=== PATIENT | male | born 1970 | race Caucasian/White ===

== ENCOUNTER 2019-11-14 07:44 | Emergency (ER) | payer OTHER, SELFPAY ==
--- NOTE | ~2019-11-14 | XR_ITS ---
XR abdomen/kub 1V DATE: 11/14/2019 08:22 INDICATION: Left flank pain. History of nephrolithiasis. TECHNIQUE: AP projection, 2 views COMPARISON: 11/14/2019 CT abdomen pelvis FINDINGS: There is a 3 mm calcified calculus overlying the left ureter at the S2 level. Multiple bilateral calcified renal stones are noted. Nonspecific bowel gas pattern without evidence of obstruction. No visceromegaly is evident. IMPRESSION: 3 mm distal left ureteral calcified calculus Bilateral nephrolithiasis Reviewed, dictated and finalized at Location [facility]. Reviewed, dictated and finalized at location A.
--- NOTE | ~2019-11-14 | CT_ITS ---
EXAMINATION: CT abdomen pelvis wo con DATE: 11/14/2019 08:17 INDICATION: Nephrolithiasis. Left-sided flank pain. TECHNIQUE: Computed tomography (CT) of the abdomen and pelvis was performed without intravenous contr ast. Automated exposure control and iterative reconstruction technique were employed. The dose-length product was 240.42 mGy-cm. COMPARISON: 04/10/2018 FINDINGS: Lung bases are clear. Heart size is normal. No pericardial or pleural effusion. Liver, gallbladder, s pleen, pancreas and bilateral adrenal glands are normal. Bilateral nephrolithiasis with 3-4 mm stone in the distal left ureter. There is very mild left hydroureteronephrosis. There are at least 5 stones in the right kidney and 10 stones in the left kidney, the largest in each kidney measuring up to 4 m m. No right-sided ureteral stones or hydronephrosis. Bladder is normal. Bowels including the appendix are normal. No free intraperitoneal gas or fluid. No pathologically enlarged abdominal or pelvic lym phadenopathy. Mild thoracolumbar spondylosis. IMPRESSION: 1. Bilateral nephrolithiasis with likely partial obstructing 3-4 mm distal left ureteral stone with v anna mild left hydroureteronephrosis. Reviewed, dictated and finalized at location A. IMPRESSION: 1. Bilateral nephrolithiasis with likely partial obstructing 3-4 mm distal left ureteral stone with very mild left hydroureteronephrosis.
--- NOTE | 2019-11-14 07:46 | ED.GENADULT ---
HPI - General Adult General Chief complaint: Urogenital-Male Stated complaint: flank pain Time Seen by Provider: 11/14/19 07:46 Source: patient Mode of arrival: ambulatory Limitations: no limitations History of Present Illness HPI narrative: Pt is a 49 yo male with a history of nephrolthiasis who presents to the ED for evaluation of flank pain. Pt with last passed kidney stone at home a couple of weeks ago. Patient was last seen in this facility in 2018 for renal colic, at that time and found to have passed a stone into his bladder and was discharged home. Patient states that he has been dealing with severe left flank pain since 3 AM this morning. Described as sharp, stabbing in nature with radiation into the left lower abdomen. Patient denies any chest pain, he reports nausea without vomiting. He denies fever. He reports difficulty with urination this morning as well as hematuria yesterday. Patient has followed with Dr. Gaffney' in the past, has required lithotripsy as well as ureteral stents. Related Data Home Medications Medication Instructions Recorded Confirmed amlodipine 11/14/19 irbesartan mg 11/14/19 tizanidine mg 11/14/19 Allergies Allergy/AdvReac Type Severity Reaction Status Date / Time ketorolac Allergy Unknown Other Verified 11/14/19 07:52 levofloxacin Allergy Unknown Other Verified 11/14/19 07:52 NSAIDS (Non-Steroidal Allergy Unknown Other Verified 11/14/19 07:52 Anti-Inflamma Review of Systems Review of Systems: Narrative: CONSTITUTIONAL: Denies fever, chills, or sweats. CARDIOVASCULAR: Denies chest pain RESPIRATORY: Denies dyspnea. GASTROINTESTINAL: Reports left flank pain, nausea, denies vomiting GENITOURINARY: Reports hematuria, difficulty with urination SKIN: Denies rash or itching. MUSCULOSKELETAL: Reports left flank pain, no central lumbar pain NEUROLOGIC: Denies headache PMFSH Past Medical History Medical History (Updated 11/14/19 @ 09:39 by Tameka Barragan MD) Duodenal perforation Hypertension Nephrolithiasis Family History Family History (Updated 02/20/16 @ 23:19 by DOCTOR UNKNOWN) Mother Hypertension Family history of diabetes mellitus in first degree relative Father Family history of bronchitis Social History Social History Smoking status: Never smoker Alcohol intake: current Gender identity (if verbalized by the patient): Male Exam Narrative: Exam Narrative: GENERAL: Awake, alert, uncomfortable appearing HEAD: Normocephalic, atraumatic. EYES: PERRLA and EOMI. ENT: Nares clear, no rhinorrhea or epistaxis. Mucous membranes moist. NECK: Supple. CHEST: No respiratory distress, breathing even and non labored HEART: Regular rate, sinus rhythm ABDOMEN:Non distended,+ left flank tenderness, does not exactly reproduce pain EXTREMITIES: Normal range of motion. No edema. SKIN: Warm, dry, no rash. NEURO:No focal deficits. Alert and oriented x3 Course Vital Signs Vital signs: Vital Signs Temperature 36.3 C L 11/14/19 07:48 Pulse Rate 96 11/14/19 07:48 Respiratory Rate 19 11/14/19 07:48 Blood Pressure 145/110 H 11/14/19 07:48 Pulse Oximetry 100 11/14/19 07:48 Temperature 36.3 C L 11/14/19 07:48 Pulse Rate 61 11/14/19 09:51 Respiratory Rate 17 11/14/19 09:51 Blood Pressure 138/96 H 11/14/19 09:51 Pulse Oximetry 100 11/14/19 09:51 Medical Decision Making MDM Narrative Medical decision making narrative: Patient presented to the emergency department for evaluation of left flank pain in the setting of known nephrolithiasis. At the time of initial assessment, ABCs are intact and vital signs are stable. Patient is quite uncomfortable appearing. He was given IV fluids, antiemetic, pain medication and had much improvement in his pain. CT scan and KUB confirm multiple kidney stones in bilateral kidneys, stone causing his issue today is a left ureteral stone. It is approximately 3 to 4 mm. Patient has a history of pass
[2019-11-14 07:48] VITALS: BP 145/110; PULSE 96; RESP 19; TEMP 36.3; O2SAT 100
[2019-11-14 08:02] LABS: Basophils Absolute Auto 0.1 K/mm3 (0.0-0.1); Basophils Percent Auto 0.5 % (0.2-1.2); Eosinophils Absolute Auto 0.2 K/mm3 (0-0.3); Eosinophils Percent Auto 1.8 % (0-4.4); Hematocrit 49.5 % (42.0-52.0); Hemoglobin 17.2 g/dL (14.0-18.0); Immature Granulocyte Absolute 0.05 K/mm3 (0.00-0.031); Immature Granulocyte Percent A 0.5 % (0-0.5); Lymphocytes Absolute Auto 3.57 K/mm3 (0.9-3.2); Lymphocytes Percent Auto 32.7 % (18.3-44.2); Mean Corpuscular HGB Conc 34.7 g/dl (32-36); Mean Corpuscular Volume 89.2 fl (80-100); Mean Platelet Volume 10.1 fl (7.4-10.4); Monocytes Percent Auto 8.9 % (2.6-8.5); Neutrophils Absolute Auto 6.1 K/mm3 (1.3-6.7); Neutrophils Percent Auto 55.6 % (45.5-73.1); Platelet Count Result 405 k/mm3 (150-375); Red Blood Count 5.55 M/mm3 (4.6-6.20); Red Cell Distribution Width 12.3 % (11.5-14.5); White Blood Count 10.9 K/mm3 (4.5-10.0)
[2019-11-14] MEDS: ONDANSETRON INJ 4 MG/2 ML VIAL IV PUSH (08:04)
[2019-11-14] MEDS: SODIUM CHLORIDE 0.9% IV 1,000 ML 999 ML IV CONT (08:06)
[2019-11-14] MEDS: MORPHINE SULFATE 4 MG/ML INJ 8 MG IV PUSH (08:06)
[2019-11-14 08:15] LABS: Blood Urea Nitrogen 14 mg/dL (9-20); Carbon Dioxide 24 mmol/L (22-30); Chloride 106 mmol/L (98-107); Estimated Glomerular Filt Rate > 60; Glucose 109 mg/dL (75-110); Potassium 4.4 mmol/L (3.4-5.0); Sodium 140 mmol/L (137-145)
[2019-11-14 09:09] LABS: Add Urine Microscopic? YES; Appearance Urine Clear (Clear); Bilirubin Urine Negative (Negative); Blood Urine 1+ (Negative); Color Urine Yellow (Yellow); Glucose Urine UA Negative (Negative); Ketones Urine Negative (Negative); Leukocyte Esterase Ur Negative LEU/UL (Negative); Mucus Urine Rare /lpf; Nitrate Urine Negative (Negative); Protein Urine 1+ mg/dL (Negative); Specific Grav Ur 1.034 (1.001-1.035); Squamous Epithelial Cell Urine Rare /hpf (Few); Urobilinogen Urine Negative mg/dL (<2.0); WBC Urine 0-3 /hpf
[2019-11-14 09:51] VITALS: BP 138/96; PULSE 61; RESP 17; O2SAT 100
== END 2019-11-14 09:53 | disposition home or self-care (01) ==
PROVIDERS: Emergency Provider Emergency Medicine
DX: N13.2 Hydronephrosis with renal and ureteral calculous obstruction (principal); I10 Essential (primary) hypertension
CPT/HCPCS: 36415; 74018; 74176; 80048; 81001; 85025; 96361; 96365; 96375; 99284; J0131; J2270; J2405; J7030

== ENCOUNTER 2019-11-14 15:31 | Observation (INO) | payer OTHER, SELFPAY ==
--- NOTE | ~2019-11-14 | XR_ITS ---
EXAMINATION: XR abdomen obstructive series DATE: 11/15/2019 05:43 INDICATION: Left renal colic TECHNIQUE: Frontal supine and upright views of the abdomen were obtained. COMPARISON: 11/14/2019 FINDINGS: Unchanged pattern of bilateral nephrolithiasis with 5 stones in the right kidney and 6 stones in the left kidney. No stones seen along the course of the ureters. No dilated gas-filled loops of bowel. Isiah nataliia are unremarkable. IMPRESSION: 1. Bilateral nephrolithiasis. Stone previously seen in the left ureter is no longer appreciated and may have passed. Reviewed, dictated and finalized at location A. IMPRESSION: 1. Bilateral nephrolithiasis. Stone previously seen in the left ureter is no l onger appreciated and may have passed.
--- NOTE | ~2019-11-14 | XR_ITS ---
EXAMINATION: XR abdomen/kub 1V EXAM DATE: 11/14/2019 16:56 INDICATION: Left nephrolithiasis. Renal colic. TECHNIQUE: Frontal projection(s) of the abdomen for interpretation. Comparison is made to prior exami nation from earlier same date. FINDINGS: The 2 most likely candidates for the left distal ureteral stones have been indicated. Ther e is bilateral nephrolithiasis. Nonobstructive bowel gas pattern. IMPRESSION: Distal left ureteral stone. Bilateral nephrolithiasis. Reviewed, dictated and finalized at location A.
[2019-11-14 15:33] VITALS: BP 166/115; PULSE 102; RESP 24; TEMP 36.4; O2SAT 99
--- NOTE | 2019-11-14 16:48 | ED.ABDPAIN ---
HPI - Abdominal Pain General Chief Complaint: Urogenital-Male Stated Complaint: left flank pain Time Seen by Provider: 11/14/19 16:12 Source: patient and family Mode of arrival: ambulatory Limitations: no limitations History of Present Illness HPI narrative: Pt is a 49-year-old male with a history of bilateral nephrolithiasis, most recently diagnosed with a partially obstructing left ureteral stone who presents for evaluation of worsening flank pain and vomiting. Patient reports since discharge from the hospital his pain returns, he has not passed the kidney stone, and his pain is not been controlled with oral medication. Patient has been nauseous and has vomited. He reports worsening left-sided abdominal pain that feels exactly like his typical kidney stone pain. Pain is severe in nature, no radiation to the back at this point. No fever. No urinary retention. Related Data Home Medications Medication Instructions Recorded Confirmed amlodipine 11/14/19 irbesartan mg 11/14/19 tizanidine mg 11/14/19 Allergies Allergy/AdvReac Type Severity Reaction Status Date / Time ketorolac Allergy Unknown Other Verified 11/14/19 07:52 levofloxacin Allergy Unknown Other Verified 11/14/19 07:52 NSAIDS (Non-Steroidal Allergy Unknown Other Verified 11/14/19 07:52 Anti-Inflamma Review of Systems Review of Systems: Narrative: CONSTITUTIONAL: Denies fever, chills, or sweats. CARDIOVASCULAR: Denies chest pain, palpitations, or edema. RESPIRATORY: Denies cough or dyspnea. GASTROINTESTINAL: Reports abdominal pain, left-sided abdominal pain, nausea and vomiting GENITOURINARY: Denies dysuria, reports hematuria SKIN: Denies rash or itching. MUSCULOSKELETAL: Denies back pain, joint pain, or myalgia. NEUROLOGIC: Denies headache, numbness, or weakness. [facility] Past Medical History Medical History Duodenal perforation Hypertension Nephrolithiasis Family History Family History Mother Hypertension Family history of diabetes mellitus in first degree relative Father Family history of bronchitis Social History Social History Smoking status: Never smoker Alcohol intake: current Gender identity (if verbalized by the patient): Male Exam Narrative: Exam Narrative: GENERAL: Awake, alert, conversant, uncomfortable appearing HEAD: Normocephalic, atraumatic. EYES: PERRLA and EOMI. ENT: Nares clear, no rhinorrhea or epistaxis. Mucous membranes moist. NECK: Supple. CHEST: No respiratory distress, breathing even and non labored HEART: Tachycardic rate, sinus rhythm ABDOMEN:Non distended, left abdominal tenderness, guarding EXTREMITIES: Normal range of motion. No edema. SKIN: Warm, dry, no rash. NEURO:No focal deficits. Alert and oriented x3 Course Vital Signs Vital signs: Vital Signs Temperature 36.4 C L 11/14/19 15:33 Pulse Rate 102 H 11/14/19 15:33 Respiratory Rate 24 H 11/14/19 15:33 Blood Pressure 166/115 H 11/14/19 15:33 Pulse Oximetry 99 11/14/19 15:33 Temperature 36.4 C L 11/14/19 15:33 Pulse Rate 102 H 11/14/19 15:33 Respiratory Rate 24 H 11/14/19 15:33 Blood Pressure 166/115 H 11/14/19 15:33 Pulse Oximetry 99 11/14/19 15:33 MDM - Abdominal Pain MDM Narrative Medical decision making narrative: Patient presented for evaluation of recurrent left-sided flank pain due to his left ureteral stone. On KUB, left ureteral stone still present. Patient has a slight bump in his creatinine. Will resend UA and culture. No UTI this am. I spoke with on-call urologist Dr. Dailey we will admit him to their service, for likely operative management tomorrow morning. Patient will be placed on maintenance fluid, given IV antiemetic, pain medications, KUB to be performed for morning. Patient family updated, patient was admitted in stable cond
[2019-11-14 17:02] LABS: Blood Urea Nitrogen 14 mg/dL (9-20); Calcium 9.6 mg/dL (8.4-10.2); Carbon Dioxide 22 mmol/L (22-30); Chloride 108 mmol/L (98-107); Estimated CRCL calculation 52 ml/min; Estimated Glomerular Filt Rate 46; Glucose 130 mg/dL (75-110); Potassium 4.5 mmol/L (3.4-5.0); Sodium 140 mmol/L (137-145)
[2019-11-14] MEDS: ONDANSETRON INJ 4 MG/2 ML VIAL IV PUSH ×2 (17:11→22:16)
[2019-11-14] MEDS: SODIUM CHLORIDE 0.9% IV 1,000 ML 999 ML IV CONT (17:11)
[2019-11-14] MEDS: MORPHINE SULFATE 4 MG/ML INJ IV PUSH (17:11)
--- NOTE | 2019-11-14 18:25 | ADMGEN ---
This patient, Fran Kimble, was admitted to Medical Room 342-01. Patient/family oriented to hospital policies and general routines including ID bracelet, bed and alarms, visiting hours, pain management, procedures, bathroom and other care routines, personal items, smoking policy, room service/diet, and visiting hours. Valuables list has been completed. Information on how to activate the Rapid Response Team has been discussed. Patient/Family are encouraged to report perceived risks to care and to ask questions if they do not understand what they are told or what they should do.
[2019-11-14 18:30] VITALS: BP 139/104; PULSE 110; RESP 18; TEMP 37.2; O2SAT 95
[2019-11-14 19:39] VITALS: BMI 29.0
[2019-11-14] MEDS: SODIUM CHLORIDE 0.9% IV 1,000 ML 125 ML IV CONT (19:52)
[2019-11-14 20:00] VITALS: BP 137/96; PULSE 88; RESP 20; TEMP 37.2; O2SAT 99
[2019-11-15] MEDS: SODIUM CHLORIDE 0.9% IV 1,000 ML 125 ML IV CONT (03:47)
[2019-11-15 04:00] VITALS: BP 102/51; PULSE 73; RESP 18; TEMP 36.8; O2SAT 99
--- NOTE | 2019-11-15 10:36 | PM.IMHP ---
H&P: HPI History of Present Illness Chief complaint: Left Renal Colic Narrative: Fran Kimble is a 49 year old male who has spontaneously passed 8-10 stones in his life but, somewhat surprisingly, has never seen a urologist. He was admitted to the ER with recurrent left flank pain that actually prompted 2 visits to the emergency department within 24 hours. He was admitted for hydration and analgesics plans for endoscopic stone extraction. Overnight, however, he spontaneously passed the stone. In addition to this ureteral stone he has multiple similar sized bilateral renal calculi. He has never undergone metabolic evaluation in the past. Review of Systems Constitutional: Constitutional: Denies chills, Denies fatigue, Denies fever(s) and Denies headache(s) Eyes: Eyes: Denies blurry vision ENT: Denies vertigo, Denies dizziness, Denies headache(s) and Denies sore throat Cardiovascular: Cardiovascular: Denies chest pain, Denies syncope, Denies lightheadedness, Denies palpitations, Denies dyspnea and Denies dyspnea on exertion Respiratory: Respiratory: Denies hemoptysis, Denies dyspnea and Denies dyspnea on exertion Gastrointestinal: Gastrointestinal: Denies melena, Denies bloating, Denies hematochezia, Denies change in bowel habits, Denies change in stool character, Denies constipation, Denies diarrhea and Denies vomiting Genitourinary: Genitourinary: Denies hematuria, Denies dysuria, Denies testicular pain, Denies urinary frequency, Denies urinary hesitancy and Denies urinary urgency Integumentary/Breasts: Skin/Breast: Denies pruritus, Denies lesions and Denies rash Neurologic: Denies confusion, Denies vertigo, Denies dizziness, Denies syncope and Denies headache(s) Psychiatric: Psychiatric: Denies anxiety, Denies change in appetite and Denies confusion Endocrine: Endocrine: Denies fatigue and Denies palpitations PMFSH Past Medical History Medical History Duodenal perforation Hypertension Nephrolithiasis Family History Family History Mother Hypertension Family history of diabetes mellitus in first degree relative Father Family history of bronchitis Social History Social History Smoking status: Never smoker Smokeless tobacco user: chewing tobacco Second hand tobacco smoke exposure: No Alcohol intake: current Drinks per week: 2 Substance use: never Substance use type: does not use Gender identity (if verbalized by the patient): Male Spiritual care concerns: No Agree to blood products: Yes Meds Home Medications and Allergies Home Medications Medication Instructions Recorded Confirmed Type acetaminophen 500 mg PO Q6H PRN #30 cap 11/14/19 11/14/19 Rx amlodipine 10 mg PO HS 11/14/19 11/14/19 History docusate sodium [Dulcolax Stool 100 mg PO DAILY PRN 10 Days #20 cap 11/14/19 11/14/19 Rx Softener (dss)] irbesartan 150 mg PO DAILY 11/14/19 11/14/19 History oxycodone [Roxicodone] 5 mg PO Q6H PRN #20 tablet 11/14/19 11/14/19 Rx tamsulosin [Flomax] 0.4 mg PO DAILY #30 cap 11/14/19 11/14/19 Rx tizanidine 4 mg PO DAILY 11/14/19 11/14/19 History Allergies Allergy/AdvReac Type Severity Reaction Status Date / Time ketorolac Allergy Unknown Other Verified 11/14/19 07:52 levofloxacin Allergy Unknown Other Verified 11/14/19 07:52 NSAIDS (Non-Steroidal Allergy Unknown Other Verified 11/14/19 07:52 Anti-Inflamma amoxicillin [From Augmentin] Allergy Gastrointestinal Verified 11/14/19 19:20 Upset ciprofloxacin [From Cipro] Allergy Joint Pain Verified 11/14/19 19:20 clavulanic acid Allergy Gastrointestinal Verified 11/14/19 19:20 [From Augmentin] Upset Vital Signs Vital Signs - 24 hr 11/14/19 15:33 11/14/19 18:30 11/14/19 20:00 Temperature 97.5 F L 99 F 99 F Pulse Rate 102 H 110 H 88 Respiratory Rate 24 H 18 2
--- NOTE | 2019-11-15 11:16 | PM.DS ---
DS: Diagnosis Admitting Diagnosis Admitting Diagnosis: Calculus of ureter DS: Summary Time Spent with Patient Time attestation: Total time spent providing and/or coordinating discharge services: 15min. S this is a young man who is spontaneously passed several stones in the past but actually never seen a urologist. He was admitted to the emergency department after presenting twice within 24 hours with left renal colic. Imaging demonstrated multiple 4-6 mm bilateral renal calculi and a 4-5 mm obstructing left distal ureteral calculus. He was admitted for hydration and analgesics. Overnight he spontaneously passed the stone. He was discharged the following day with instructions to follow-up within several weeks so we can coordinate a metabolic stone evaluation. Exam Const: General: no acute distress Resp: Effort & Inspection: normal respiratory effort GI: Inspection: non-distended GI Palp: No abdominal tenderness and No Guarding due to palpation present (GI) Auscultation: normal bowel sounds DS: Data Data Completed and Pending Labs on day of discharge: Labs from last 24 hours 11/14/19 16:46 Sodium 140 Potassium 4.5 Chloride 108 H Carbon Dioxide 22 BUN 14 Creatinine 1.60 H Estim Creat Clear Calc 52 Estimated GFR 46 L Glucose 130 H Calcium 9.6 Discharge Plan Discharge Attending physician on discharge: Wisam Dailey Consulting providers: Kyle Neff Discharging Clinician: Francisco Gaffney Patient Disposition: Home, Self-Care Activity: unlimited Diet: regular Discharge Instructions: 1) Activity: no restrictions. 2) Diet: resume your normal, pre-admission diet. 3) Follow-up: 2-4 weeks / call for appointment ([phone]). Patient Instructions: Antibiotic Form, Kidney Stones (DC), Pain Management (DC) Stand Alone Forms: General Discharge Information Follow-up/Referrals: Francisco Gaffney MD [Physician] - Discharge Medications: Continued amlodipine 10 mg tablet 10 mg PO HS RF: 0 tizanidine 4 mg tablet 4 mg PO DAILY RF: 0 irbesartan 150 mg tablet 150 mg PO DAILY RF: 0 tamsulosin [Flomax] 0.4 mg capsule 0.4 mg PO DAILY Qty: 30 RF: 0 acetaminophen 500 mg capsule 500 mg PO Q6H PRN (Reason: fever or pain) Qty: 30 RF: 0 oxycodone [Roxicodone] 5 mg tablet 5 mg PO Q6H PRN (Reason: pain) Qty: 20 RF: 0 docusate sodium [Dulcolax Stool Softener (dss)] 100 mg capsule 100 mg PO DAILY PRN (Reason: constipation ) 10 Days Qty: 20 RF: 0 Date of admission: 11/14/19 16:57 Primary Care Provider: UNKNOWN,DOCTOR Admitting Provider: Wisam Dailey Attending physician on admission: Wisam Dailey Condition: Stable
== END 2019-11-15 12:00 | disposition home or self-care (01) ==
LOC: ANHED 17:05 → ANH3MED 17:48
PROVIDERS: Admitting Provider Urology; Emergency Provider Emergency Medicine; Visit Provider Urology
DX: N20.2 Calculus of kidney with calculus of ureter (principal); Z87.442 Personal history of urinary calculi; I10 Essential (primary) hypertension; Z72.0 Tobacco use
CPT/HCPCS: 36415; 74018; 74019; 74176; 80048; 81001; 85025; 87086; 96360; 96361; 96365; 96374; 96375; 96376; 99284; 99285; A9270; G0378; J0131; J2270; J2405; J7030

== ENCOUNTER 2021-06-03 06:53 | Emergency (ER) | payer OTHER, SELFPAY ==
--- NOTE | ~2021-06-03 | XR_ITS ---
EXAMINATION: XR chest 1V portable DATE: 06/03/2021 07:28 INDICATION: Chest pain. TECHNIQUE: A single frontal view of the chest was obtained. COMPARISON: CT abdomen and pelvis 11/14/2019 FINDINGS: The chest demonstrates clear lungs without pneumonia, pleural effusion, or pneumothorax. Th e heart size is normal. IMPRESSION: 1. No acute cardiopulmonary disease. Reviewed, dictated and finalized at location A. [employer]
--- NOTE | 2021-06-03 06:54 | ECG_ITS ---
Measurements Intervals [place] Rate: 67 P: 5 MI: 167 QRS: -18 QRSD: 108 T: 0 QT: 407 QTc: 431 Interpretive Statements SINUS RHYTHM VOLTAGE CRITERIA FOR LVH BORDERLINE AV CONDUCTION DELAY BORDERLINE T WAVE ABNORMALITY- INFERIOR LEADS BASELINE ARTIFACT- I, II, AVR, V1, V3 BORDERLINE ECG Electronically Signed On 06-03-2021 12:18:43 SUPPLY ANALYST by Omega Dailey D.O.
[2021-06-03 07:01] VITALS: BP 129/97; PULSE 64; RESP 17; TEMP 36.6; O2SAT 98
[2021-06-03 07:08] VITALS: PULSE 68
--- NOTE | 2021-06-03 07:11 | ED.CHESTPAIN ---
HPI - Chest Pain General Chief Complaint: Chest Pain Stated Complaint: Chest pain, dizziness Time Seen by Provider: 06/03/21 07:06 Source: patient History of Present Illness HPI narrative: Patient presents with chest pain. Reports it started yesterday describes a pressure sensation alleviated with walking around and belching there is no radiation. He does not describe any associated shortness of breath. Denies recent cough, congestion, fevers. Denies any nausea or vomiting. Reports his brother at 45 from sudden cardiac arrest unclear etiology. Denies recent hospitalizations, prior history of blood clots. Related Data Home Medications Medication Instructions Recorded Confirmed amlodipine 10 mg PO HS 11/14/19 11/14/19 irbesartan 150 mg PO DAILY 11/14/19 11/14/19 tizanidine 4 mg PO DAILY 11/14/19 11/14/19 Allergies Allergy/AdvReac Type Severity Reaction Status Date / Time ketorolac Allergy Unknown Other Verified 11/14/19 07:52 levofloxacin Allergy Unknown Other Verified 11/14/19 07:52 NSAIDS (Non-Steroidal Allergy Unknown Other Verified 11/14/19 07:52 Anti-Inflamma amoxicillin [From Augmentin] Allergy Gastrointestinal Verified 11/14/19 19:20 Upset ciprofloxacin [From Cipro] Allergy Joint Pain Verified 11/14/19 19:20 clavulanic acid Allergy Gastrointestinal Verified 11/14/19 19:20 [From Augmentin] Upset Review of Systems Review of Systems: CONSTITUTIONAL: Denies fever, chills, or sweats. EYES: Denies visual changes, redness, or discharge. ENT: Denies rhinorrhea, congestion, sore throat, or otalgia. CARDIOVASCULAR: Denies palpitations, or edema. RESPIRATORY: Denies cough or dyspnea. GASTROINTESTINAL: Denies abdominal pain, nausea, vomiting, or diarrhea. GENITOURINARY: Denies dysuria or hematuria. SKIN: Denies rash or itching. MUSCULOSKELETAL: Denies back pain, joint pain, or myalgia. NEUROLOGIC: Denies headache, numbness, dizziness, or weakness. PSYCHIATRIC: Denies anxiety or depression. All systems reviewed & are unremarkable except as noted in HPI and below PMFSH Past Medical History Medical History (Updated 06/03/21 @ 08:23 by Zaki Dejesus MD) Duodenal perforation Hypertension Nephrolithiasis Family History Family History Mother Hypertension Family history of diabetes mellitus in first degree relative Father Family history of bronchitis Social History Social History Smoking status: Never smoker Smokeless tobacco user: chewing tobacco Second hand tobacco smoke exposure: No Alcohol intake: current Drinks per week: 2 Substance use: never Substance use type: does not use Gender identity (if verbalized by the patient): Male Spiritual care concerns: No Agree to blood products: Yes Exam Narrative: GENERAL: Well-appearing, well-nourished, and in no acute distress. HEAD: Normocephalic, atraumatic. EYES: PERRLA and EOMI. ENT: Nares clear, no rhinorrhea or epistaxis. Mucous membranes moist. NECK: Supple. No masses. No JVD CHEST: Clear to auscultation. No respiratory distress. No wheezes rales or rhonchi HEART: Regular rate and rhythm. No murmur heard. Normal peripheral pulses. ABDOMEN: Soft, nontender, nondistended, normal active bowel sounds. EXTREMITIES: Normal range of motion. No edema. SKIN: Warm, dry, no rash. NEURO: No focal deficits. Alert and oriented x3. PSYCH: Normal mood and affect. Course Reevaluation(s) Reevaluation #1: Patient reports feeling much improved with supportive therapies labs reviewed with patient. Patient comfortable out plan. Date: 06/03/21 Time: 08:21 Vital Signs Vital signs: Vital Signs Temperature 36.6 C 06/03/21 07:01 Pulse Rate 64 06/03/21 07:01 Respiratory Rate 17 06/03/21 07:01 Blood Pressure 129/97 H 06/03/21 07:01 Pulse Oximetry 98 06/03/21 07:01 Temperature 36.6 C 06/03/21 07:01
[2021-06-03 07:25] LABS: Basophils Absolute Auto 0.1 K/mm3 (0.0-0.1); Basophils Percent Auto 0.8 % (0.2-1.2); Eosinophils Absolute Auto 0.1 K/mm3 (0-0.3); Eosinophils Percent Auto 0.9 % (0-4.4); Hemoglobin 17.7 g/dL (14.0-18.0); Immature Granulocyte Absolute 0.06 K/mm3 (0.00-0.031); Immature Granulocyte Percent A 0.7 % (0-0.5); Lymphocytes Absolute Auto 2.65 K/mm3 (0.9-3.2); Lymphocytes Percent Auto 29.3 % (18.3-44.2); Mean Corpuscular HGB Conc 35.4 g/dl (32-36); Mean Corpuscular Hemoglobin 31.8 pg (26-34); Mean Corpuscular Volume 89.9 fl (80-100); Mean Platelet Volume 10.2 fl (7.4-10.4); Monocytes Absolute Auto 0.8 K/mm3 (0.1-0.6); Monocytes Percent Auto 8.5 % (2.6-8.5); Neutrophils Absolute Auto 5.4 K/mm3 (1.3-6.7); Neutrophils Percent Auto 59.8 % (45.5-73.1); Platelet Count Result 406 k/mm3 (150-375); Red Blood Count 5.56 M/mm3 (4.6-6.20); Red Cell Distribution Width 12.2 % (11.5-14.5); White Blood Count 9.1 K/mm3 (4.5-10.0)
[2021-06-03 07:27] LABS: INR 0.9; Prothrombin Time 12.1 Seconds (11.1-14.7)
[2021-06-03 07:28] LABS: Partial Thromboplastin Time 31.4 SECONDS (22.3-36.8)
[2021-06-03 07:29] LABS: Anion Gap 13 mmol/L (8-16); Blood Urea Nitrogen 26 mg/dL (9-20); Calcium 9.7 mg/dL (8.4-10.2); Carbon Dioxide 26 mmol/L (22-30); Chloride 101 mmol/L (98-107); Estimated CRCL calculation 56 ml/min; Estimated Glomerular Filt Rate 53; Glucose 114 mg/dL (65-110); Potassium 3.9 mmol/L (3.4-5.0); Sodium 140 mmol/L (137-145)
[2021-06-03 07:30] LABS: Alanine Aminotransferase 52 U/L (4-50); Albumin Level 4.9 g/dL (3.5-5.1); Alkaline Phosphatase 98 U/L (38-126); Aspartate Amino Transferase 34 U/L (17-59); Bilirubin,Total 0.8 mg/dL (0.2-1.3); Lipase 85 U/L (23-300)
[2021-06-03] MEDS: LIDOCAINE HCL 2% VISC SOLN 15 ML UDC 20 ML PO (07:30)
[2021-06-03] MEDS: SODIUM CHLORIDE 0.9% IV 1,000 ML 999 ML IV CONT (07:31)
[2021-06-03] MEDS: MAG HYDROX/AL HYDROX/SIMETH 30 ML UDC PO (07:31)
[2021-06-03 07:42] LABS: Troponin I < 0.012 ng/mL (0.000-0.034)
[2021-06-03 08:35] VITALS: BP 107/81; PULSE 52; RESP 11; O2SAT 99
== END 2021-06-03 08:36 | disposition home or self-care (01) ==
PROVIDERS: Emergency Medicine; Emergency Provider Emergency Medicine
DX: R00.1 Bradycardia, unspecified (principal); R07.9 Chest pain, unspecified; I10 Essential (primary) hypertension; Z87.442 Personal history of urinary calculi
CPT/HCPCS: 36415; 71045; 80048; 80076; 83690; 84484; 85025; 85610; 85730; 93005; 96365; 99284; A9270; J0131; J7030

== ENCOUNTER 2025-05-04 00:58 | Emergency (ER) | payer OTHER, SELFPAY ==
--- OUTSIDE RECORDS SUMMARY | 2019-08-14 06:00 | XMS_ITS | Continuity of Care Document ---
Author Organization [facility] Address [address] [place] [address] Phone Care Team Providers Care [employer] Name Role Phone Pk Charles PA-C Unavailable Unavailable Allergies, Adverse Reactions, Alerts Substance Reaction Status Criticality No Known Allergies Active No Inform ation Medications Medication Instructions Dosage Effective Dates (start - stop) Status Comments Aleve 220 mg tablet take 1 tablet by ora l route every 12 hours as needed 220 MG - Active Vitamin D3 1,000 unit capsule - Active Norvasc 10 mg tablet take 1 tablet by or al route every day 10 MG - Active Avapro 150 mg tablet take 1 tablet by or al route every day 150 MG - Active Prilosec OTC 20 mg tablet,delayed release - Active Procedures Procedure Date OFFICE/OUTPATIENT VISIT EST OFFICE/OUTPATIENT VISIT EST OFFICE/OUTPATIENT VISIT NEW Advance Directives Directive Yes / No Effective Date File Name No Information Encounters Encounter Description Practice Location Reason(s) For Visit Diagnoses Date Provider Providers Copied on Encounter OFFICE/OUTPAT IENT VISIT EST [facility], [address] [address], [place], [address], [place] tel:[phone] [facility] Lateral epicondylitis of right elbow [address], [place], [place], [id number] , [place]. tel: [phone] OFFICE/OUTPAT IENT VISIT EST [facility], [address], [place], [address], [place] tel:[phone] [facility] Lateral epicondylitis of right elbowBody mass index (BMI) 27.0-27.9, adult [address]. [address], [place], [place], [id number] , [place]. tel: [phone] OFFICE/OUTPAT IENT VISIT [facility], [address], [place], [address], [place] [phone] [facility] [place] Body mass index (BMI) 27.0-27.9, adultLateral epicondylitis of right elbow 9 Sukhjinder Bean. [address], [place], [place], [id number] . tel: [phone] Referring Provider: Susy Yu [address], [place], [address]. tel:[phone] Family History Family Member Type Diagnosis Age At Onset No Information Payers Payer name Insurance type Covered libertarian ID Jossue henning(s) Girish [id number] Social History Type Description Quantity Date Captured Comments Alcohol Use Details Unknown Caffeine Use Details Unknown Tobacco Use Status Smoking Status Unknown if ever smoked 20 Sex Male Chief Complaint And Reason For Visit No Information Reason For Referral Reason For Referral No Information History Of Present Illness Encounter Date Complaint History Of Prese nt Illness No Information Functional Status Date Functional Assessmen t No Information Instructions Date Instruction Additional Infor mation Giving encouragement to exercise Related to Body mass index (BMI) 27.0-27.9, adult Giving encouragement to exercise Related to Body mass index (BMI) 27.0-27.9, adult Assessments Type Assessment Date assessment Lateral epicondylitis of right e lbow Patient Care Teams Name Effective Dates (start - stop) Status Members No Information
[2025-05-04] VITALS (34 sets, daily range): BP systolic 107–130; BP diastolic 71–92; PULSE 57–124; RESP 14–27; TEMP 36.8–37; O2SAT 92–100
--- NOTE | ~2025-05-04 | CT_ITS ---
CT CHEST WITHOUT CONTRAST CLINICAL HISTORY: dyspnea . COMPARISON: Chest x-ray same day TECHNIQUE: Helical CT performed from thoracic inlet to upper abdomen without contrast Coronal, sagittal reformats CT images acquired with automatic exposure control for dose reduction DLP: 202 mGy-cm FINDINGS: Lungs/Pleura: Dependent atelectasis. Heart: Mildly enlarged. Thoracic Aorta: No aneurysm. Pulmonary arteries: Normal caliber. Tracheobronchial tree: Patent. Nodes: No enlarged nodes. Small mediastinal nodes Bones: No acute bony abnormality. Soft tissues: Unremarkable. Visualized upper abdomen: Colonic diverticula. IMPRESSION: 1. No acute findings. Reviewed, dictated and finalized at location R. IMPRESSION: 1. No acute findings.
--- NOTE | ~2025-05-04 | XR_ITS ---
Examination: XR chest 1V portable Clinical History: dyspnea Comparison: None Technique: Portable AP Findings: Heart size mildly enlarged. Low lung volumes crowd bronchovascular markings. Bibasilar atelectasis. No acute bony abnormality. IMPRESSION: 1. Bibasilar atelectasis. Consider PA and lateral films with deep inspiration. Reviewed, dictated and finalized at location R.
--- OUTSIDE RECORDS SUMMARY | 2025-05-04 01:59 | XMS_ITS | Clinical Summary ---
Author Organization [facility] Address [address] [place] [address] Care Team Providers Care Bulk Tank Driver Name Role Phone Himanshu Todd MD Unavailable [phone] Thee Beasley DO Primary Care Provider [phone] Thee Beasley DO Unavailable Long Goodwin MD Unavailable Ja Kelsey MD Unavailable Source Comments [facility],non-owned Affiliates and Associated Physician Practices is amultiple site organization consisting of ambulatory clinics and hospital sitesin [place], [place], [place] and [place]. This disclosure is being madepursuant to the Care Everywhere program and may not contain all information available regarding this patient. Last updated 18.[facility] Allergies Active Allergy Reactions Criticality Noted Date Comments Amoxicillin GI Discomfort 11/14/2019 Atorvastatin Myalgias Medium 12/02/2022 Augmentin GI Discomfort Medium 08/20/2018 Ciprofloxacin Other 11/14/2019 Clavulanic Acid GI Discomfort 11/14/2019 Ibuprofen GI Discomfort Medium 05/12/2016 Ketorolac Other 11/14/2019 Levofloxacin Other Medium 04/28/2014 Joint & tendon pain right in both hands, tendonitis Nsaids Other 11/14/2019 Medications * This document contains information received from the source organization and may not represent a complete record from that organization. * Be aware that medications may not be up to date on this document. Alwaysverify current medications with the patient. Cholecalciferol (VITAMIN D3) 1000 UNITS Take by mouth once daily One daily by mouth 05/03/20 16 Active Cyanocobalamin (VITAMIN B 12 PO) Take 1 tablet by mouth once daily Active sildenafil (Viagra) 50 MG tabletIndicatio ns:Erectile dysfunction, unspecified erectile dysfunction type TAKE ONE TABLET BY MOUTH ONCE DAILY NEEDED BEFORE SEX FOR A BETTER ERECTION 30 tablet 3 06/08/20 24 Active Additional Information Patient taking differently: 50 mg Oral DAILY PRN, TAKE ONE TABLET BY MOUTH ONCE DAILY NEEDED BEFORE SEX FOR A BETTER ERECTION, Reported on 04/10/2025 carvedilol (Coreg) 3.125 MG tablet TAKE 1 TABLET BY MOUTH TWICE DAILY WITH THE MORNING AND EVENING MEAL 180 tablet 4 07/31/19 25 Active Additional Information Patient taking differently:3.125 mg Oral2 TIMES DAILY WITH MEALS, Reported on 04/10/2025 gabapentin (Neurontin) 300 MG capsule Take 1 (one) capsule by mouth 3 times daily 21 capsule 09/19/19 25 Active irbesartan (Avapro) 150 MG tablet TAKE 1 TABLET BY MOUTH TWICE DAILY 180 tablet 3 10/06/19 25 Active hydrOXYzine HCl (Atarax) 10 MG tablet TAKE 1 TO 2 TABLETS BY MOUTH EVERY NIGHT NEEDED FOR ANXIETY 90 tablet 11/07/19 25 Active pregabalin (Lyrica) 50 MG capsule Take 1 (one) capsule by mouth 2 times daily 60 capsule 2 01/09/20 25 Active tiZANidine (Zanaflex) 4 MG tablet TAKE 1 TABLET BY MOUTH AT BEDTIME 30 tablet 2 01/10/20 25 Active chlorthalidone (Hygroton) 25 MG tablet TAKE 1 TABLET BY MOUTH EVERY DAY 30 tablet 11 03/04/20 25 Active escitalopram (Lexapro) 20 MG tablet Take 1 (one) tablet by mouth once daily 90 tablet 03/15/20 25 Active escitalopram (Lexapro) 5 MG tablet Take 1 (one) tablet by mouth once daily 03/03/20 25 Active DULoxetine (Cymbalta) 20 MG capsule TAKE 1 CAPSULE BY MOUTH DAILY 30 capsule 2 04/08/20 25 Active DULoxetine (Cymbalta) 20 MG capsule Take 1 (one) capsule by mouth once daily 30 capsule 2 10/13/19 25 025 Discontinued Active Problems Problem Noted Date Diagnosed Date Bradycardia 03/29/2025 Bilateral renal stones 03/29/2025 Chest pain 03/29/2025 Renal colic on left side 03/29/2025 Left ureteral stone 03/29/2025 Shingles (herpes zoster) polyneuropathy 09/06/19 25 Tendinitis of left rotator cuff 12/02/2023 Generalized anxiety disorder 05/13/2022 Hypertriglyceridemia without hypercholesterolemi a 03/21/2021 Atypical nevi 03/14/2019 Lateral epicondylitis of right elbow 01/24/2019 Tobacco use disorder- chew 1 can per week 2017 Peptic ulcer disease 05/19/2016 Overview (05/19/2016): Never stop PPI. PUD as teen, recurrences include 2015 while on H2 cali. No triggers. H. Pylori neg 2014 Tachycardia 08/12/2014 FH: premature coronary heart disease brother age 45 [place] in 201308/08/2014 Headache 08/08/2014 Warts 08/08/2013 Essential hypertension 05/09/2013 Overview (05/09/2013): Controlled on amlodipine and avapro- unsure names of the several meds previously trialed- ineffective as solo meds. No ADR. Seasonal allergies 05/09/2013 Overview (08/08/2013): astelin nasal Kidney stone recurrent Overview (04/20/2018): 04/10/18 [facility] at [facility]: 4 mm calcification in bladder. Mild R hydronephrosis. Non-obstructing bilateral renal stones Recurrent; CT 09/06/15 shows multiple stones. Resolved Problems Problem Noted Date Diagnosed Date Resolved Date Right elbow pain with limite d AROM since spring 201801/24/2019 06/06/2023 Abdominal pain, epigastric 04/26/2014 0 08/08/2014 Duodenitis 04/26/2014 09/14/2018 Cervical radicular pain 07/19/201307/25 Overview (08/08/2014): Resolved. Tizanidine helpful, started 06/06. No EMG done yet Chest pain 2012201405/09/20132021 Overview (05/19/2016): Stress echo 08/2014 and 10/04 normal; Lexiscan 11/04 Insomnia 05/09/2013 05/03/2016 Overview (08/08/2014): Latency and frequent waking. Sleep study inconclusive. Tizanidine for sleep and arm sx 06/06. arm sx resolveds Trazodone not fully effective but Groggy on 100 mg but sleep hours only 6-8 hrs. Will not sleep without trazodone. Nortriptyline ineffective and c/o achiness HTN (hypertension) 5 Encounters Date Type Department Care Team Description 04/10/2025 9:40 AM CDT Office Visit [facility] - Orthopedics [address] [place] [phone] Yossi Alvarez MD S/P shoulder surgery (Primary Dx) 04/10/2025 Travel 04/04/2025 Refill [facility] Neurosc[facility] [address] [facility] [address] [place] [address] Ja Kelsey MD Refill Request 03/14/2025 Refill [facility] - Internal Medicine [address] [facility] [place] [address] Thee Beasley, DO MEDICATION REFILL 03/02/2025 Refill [facility] [address] [facility] [address] [place] [address] Himanshu Todd MD Refill Request 02/06/2025 9:20 AM CDT Office Visit [facility] - Orthopedics [address] [place] [phone] Yossi Alvarez MD S/P shoulder surgery (Primary Dx) 02/06/2025 Travel from Last 3 Months Immunizations Immunization Administration Dates Next Due INFLUENZA VACCINE, QUADR. (F LUZONE; FLULAVAL; FLUARIX; AFLURIA QUADRIVALENT; 6MO+), 0.5 ML (IIV4) 05/24/2020,04/30/2019 TDAP (7yrs+) 02/27/2020,05/09/2013 Family History Medical History Relation Name Comments CAD (Coronary Artery Disease) Brother 1 Mau of [place] Hypertension Brother 2 Cancer Father Ulcers Father CAD (Coronary Artery Disease) Maternal Grandfather of [place] CAD (Coronary Artery Disease) Maternal Grandmother of [place] early 50's Cancer - Breast Mother Diabetes Mother Hypertension Mother Stroke Paternal Grandfather Relation Name Status Comments Brother 1 Mau (Age 45) 2013 Brother 2 Father (Age 75) Maternal Grandfather Maternal Grandmother Mother Alive Paternal Grandfather Social History Tobacco Use Types Packs/Day Years Used Date Smoking Tobacco: Never Smokeless Tobacco: Former Chew Tobacco Cessation:Counseling Given: Not Answered Comments:chew for 10 years quit at age 41,restarted, 1 can per week Alcohol Use Standard Drinks/Week Comments Not Currently 0 (1 standard drink = 0.6 oz pur e alcohol) 2-3 beers/week PHQ-2 Answer Date Recorded Patient Health Questionnaire-2 Score 2 04/05/2025 Sex and Gender Information Value Date Recorded Sex Assigned at Not on file Legal Sex Male 7:40 AM BENEFITS SALES CONSULTANT Gender Identity Not on file Sexual Orientation Not on file 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 Not on file Not on file Not on file Last Filed Vital Signs Vital Sign Reading Time Taken Comments Blood Pressure 120/90 01/08/2025 8:03 AM CDT Pulse 81 01/08/2025 8:03 AM CDT Temperature 37 C (98.6 F) 11/22/2024 2:44 PM CDT Respiratory Rate 18 09/20/2024 10:20 AM BENEFITS SALES CONSULTANT Oxygen Saturation 96% 01/08/2025 8:03 AM CDT Inhaled Oxygen Concentration - - Weight 88.5 kg (195 lb) 01/08/2025 8:03 AM CDT Height 175.3 cm (5' 9) 01/08/2025 8:03 AM CDT Body Mass Index 28.8 01/08/2025 8:03 AM CDT Plan of Treatment Upcoming Encounters Date Type Department Care Team (Late st Contact Info) Description 05/10/2025 3:00 PM CDT Office Visit [facility] - Internal Medicine [address] [facility] [place] [address] Thee Beasley, [address] [place] [address] 07/11/2025 8:20 AM BENEFITS SALES CONSULTANT Office Visit [facility] Health Neurosciences [address] [place], [place] [id number] Ja Kelsey MD [address] [place], [place] [id number] 11/22/2025 9:30 AM CDT Office Visit [facility] [address] [place], [place] [id number] Himanshu Todd MD [address] [facility] [address] [place] [address] Health Maintenance Due Date Last Done Comments COLOGUARD (AGES 45-75) - COLON CA SCREENING 1970 CT COLONOGRAPHY - COLON CA SCREENING 1970 FIT - COLON CA SCREENING 1970 FLEX SIG - COLON CA SCREENING 1970 HIV SCREENING 1985 HEPATITIS B VACCINE (1 of 3 - 19+ 3-dose series) 1989 PNEUMOCOCCAL VACCINE 50+ (1 of 1 - PCV) 2020 ZOSTER VACCINE (1 of 2) 2020 COVID-19 VACCINE (3 - season) 2025 03/24/2021, 03/03/2021 INFLUENZA VACCINE (#1) 2025 05/24/2020, 2018 COLON MONITORING 02/11/2026 02/11/2023, , 02/11/2023 Colorectal Cancer Screening 02/11/2026 SCREENING FOR DIABETES 05/11/2027 , 05/11/2024, 05/11/2024, Additional history exists LIPID TESTING 05/11/2029 05/11/2024, 08/25, 09/03/2022, Additional history exists DTAP/TDAP/TD VACCINES (3 - Td or Tdap) 02/26/2030 02/27/2020, 05/09/2013 COLONOSCOPY - COLON CA SCREENING 02/11/2033 02/11/2023, 02/11/2023, 02/11/2023 HEPATITIS C SCREENING Completed 09/03/2022 DEPRESSION SCREENING Completed 08/17/2024, 11/30/2023, 12/02/2022, Additional history exists HIB VACCINE Aged Out No longer eligi ble based on patient's age to complete this topic HPV VACCINE Aged Out No longer eligi ble based on patient's age to complete this topic MENINGOCOCCAL (Group B) VACCINE SHARED DECISION-MAKING Aged Out No longer eligible based on patient's age to complete this topic MENINGOCOCCAL GROUPS A/C/Y/W VACCINE Aged Out No longer eligible based on patient's age to complete this topic Goals Goal Patient Goal Type Associated Problems Recent Progress Patient-Stated? Author Blood Pressure < 140/90 Blood Pressure 120/90( 025 8:03 AM CDT) Cristina Hendrix MA Medical Devices Implanted Type Area Leadership Recruiter Device Identifier Shelf Expiration Date Model / Serial / Lot [employer] Sut Healix Adv 5.5mm Bcmps Slf Implanted:Qty: 1 on 09/20/2024 by Yossi Alvarez MD at [facility] [employer] 04/23/2027 [id number] / / [id number] Procedures Procedure Name Priority Date/Time Associated Diagnosis Comments COMPREHENSIVE METABOLIC PANEL Routine 05/11/2024 8:05 AM CDT Post herpetic neuralgia LIPID PROFILE REFLEX LDL DIRECT Routine 05/11/2024 8:05 AM CDT Hypertriglyceridemia without hypercholesterolemia ENDOSCOPY, COLON, SCREENING Routine 02/11/2023 10:17 AM CDT Screen for colon cancer HEPATITIS C ANTIBODY Routine 09/03/2022 8:44 AM BENEFITS SALES CONSULTANT Need for hepatitis C screening test from Last 3 Months or Most Recently Relevant to Health Maintenance Results * (ABNORMAL) LIPID PROFILE REFLEX LDL DIRECT (05/11/2024 8:05 AM CDT) Cholesterol 186 100 - 199 mg/dL [facility] ACCOUNT BILL Triglycerides 242(H) 0 - 149 mg/dL [facility] ACCOUNT BILL HDL Cholesterol 49 >39 mg/dL [facility] ACCOUNT BILL VLDL Calculated 41(H) 5 - 40 mg/dL [facility] ACCOUNT BILL LDL Calculated 96 0 - 99 mg/dL [facility] ACCOUNT BILL Cholesterol/HDL Ratio 3.8 0.0 - 5.0 ratio [facility] ACCOUNT BILL Comment: T. Chol/HDL Ratio Men Women 1/2 Avg.Risk 3.4 3.3 Avg.Risk 5.0 4.4 2X Avg.Risk 9.6 7.1 3X Avg.Risk 23.4 11.0 LDL/HDL Ratio 2.0 0.0 - 3.6 ratio [facility] ACCOUNT BILL Comment: LDL/HDL Ratio Men Women 1/2 Avg.Risk 1.0 1.5 Avg.Risk 3.6 3.2 2X Avg.Risk 6.2 5.0 3X Avg.Risk 8.0 6.1 Blood BLOOD SPECIMEN / Unknown 05/11/2024 8:05 AM CDT 05/11/2024 Narrative [facility] ACCOUNT BILL - 05/12/2024 7:11 AM CDT Performed at: - [address] [id number] It Trainee: Keenan Bright PhD, Phone: [phone] us Thee Beasley DO LAB - CHEMISTRY ORDERABLES Final Result Performing Organization Address City/State/[facility] Co de Phone Number [facility] ACCOUNT BILL [address] [place] [address] * (ABNORMAL) COMPREHENSIVE METABOLIC PANEL (05/11/2024 8:05 AM CDT) Glucose 81 70 - 99 mg/dL [facility] ACCOUNT BILL BUN 14 6 - 24 mg/dL [facility] ACCOUNT BILL Creatinine 1.41(H) 0.76 - 1.27 mg/dL [facility] ACCOUNT BILL eGFR by CKD-EPI 59(L) >59 mL/min/1.7 3 [facility] ACCOUNT BILL BUN/Creatinine Ratio 10 9 - 20 [facility] ACCOUNT BILL Sodium 140 134 - 144 mmol/L [facility] ACCOUNT BILL Potassium 3.9 3.5 - 5.2 mmol/L [facility] ACCOUNT BILL Chloride 99 96 - 106 mmol/L [facility] ACCOUNT BILL CO2 27 20 - 29 mmol/L [facility] ACCOUNT BILL Calcium 9.7 8.7 - 10.2 mg/dL [facility] ACCOUNT BILL Protein Total 6.8 6.0 - 8.5 g/dL [facility] ACCOUNT BILL Albumin 4.3 3.8 - 4.9 g/dL [facility] ACCOUNT BILL Globulin Total 2.5 1.5 - 4.5 g/dL [facility] ACCOUNT BILL Bilirubin Total 0.6 0.0 - 1.2 mg/dL [facility] ACCOUNT BILL Alkaline Phosphatase 72 44 - 121 IU/L [facility] ACCOUNT BILL AST 13 0 - 40 IU/L [facility] ACCOUNT BILL ALT 14 0 - 44 IU/L [facility] ACCOUNT BILL Blood BLOOD SPECIMEN / Unknown 05/11/2024 8:05 AM CDT 05/11/2024 Narrative [facility] ACCOUNT BILL - 05/12/2024 6:13 AM CDT Performed at: 01 - [address] [id number] It Trainee: Keenan Bright PhD, Phone: [phone] us Ja Kelsey MD LAB - CHEMISTRY ORDERABLES F inal Result [facility] ACCOUNT BILL [address] [place] [address] * ENDOSCOPY, COLON, SCREENING (02/11/2023 10:17 AM CDT) Report Endoscopy POC _ Patient Name: Fran Kimble Procedure Date: 02/11/2023 10:17 AM Date of : 1970 Admit Type: Outpatient Age: 52 Gender: Male Ethnicity: Not or Race: White Attending MD: Long Goodwin MD, [id number] _ Procedure: Colonoscopy Indications: Screening for colorectal malignant neoplasm Providers: Long Goodwin MD (Doctor), Carlos Randall RN Referring MD: Thee Beasley DO (Referring MD) Medicines: Monitored Anesthesia Care Complications: No immediate complications. _ Estimated Blood Loss: Estimated blood loss: none. Procedure: Pre-Anesthesia Assessment: - Prior to the procedure, a History and Physical was performed, and patient medications and allergies were reviewed. The patient's tolerance of previous anesthesia was also reviewed. The risks and benefits of the procedure and the sedation options and risks were discussed with the patient. All questions were answered, and informed consent was obtained. Prior Anticoagulants: The patient has taken no anticoagulant or antiplatelet agents. ASA Grade Assessment: II - A patient with mild systemic disease. After reviewing the risks and benefits, the patient was deemed in satisfactory condition to undergo the procedure. After I obtained informed consent, the scope was passed under direct vision. Throughout the procedure, the patient's blood pressure, pulse, and oxygen saturations were monitored continuously. The Colonoscope was introduced through the anus and advanced to the cecum, identified by appendiceal orifice and ileocecal valve. The colonoscopy was performed without difficulty. The patient tolerated the procedure well. The quality of the bowel preparation was fair. The ileocecal valve, appendiceal orifice, and rectum were photographed. Impression: - Preparation of the colon was fair. - Diverticulosis. - One 3 mm polyp in the rectum, removed with a jumbo cold forceps. Resected and retrieved. - One 4 mm polyp in the cecum, removed with a cold snare. Resected and retrieved. Findings: Diverticula were found in the colon. A 3 mm polyp was found in the rectum. The polyp was sessile. The polyp was removed with a jumbo cold forceps. Resection and retrieval were complete. Estimated blood loss: none. A 4 mm polyp was found in the cecum. The polyp was sessile. The polyp was removed with a cold snare. Resection and retrieval were complete. Estimated blood loss: none. _ Recommendation: - Written discharge instructions were provided to the patient. - The signs and symptoms of potential delayed complications were discussed with the patient. - Patient has a contact number available for emergencies. - Return to normal activities tomorrow. - Resume previous diet. - Continue present medications. - Await pathology results. - Repeat colonoscopy in 3 years for surveillance based on pathology results. Procedure Code(s): --- Professional --- 29612, Colonoscopy, flexible; with removal of tumor(s), polyp(s), or other lesion(s) by snare technique 70128, 59, Colonoscopy, flexible; with biopsy, single or multiple --- Technical --- 75494, Colonoscopy, flexible; with removal of tumor(s), polyp(s), or other lesion(s) by snare technique 51342, 59, Colonoscopy, flexible; with biopsy, single or multiple Diagnosis Code(s): --- Professional --- Z12.11, Encounter for screening for malignant neoplasm of colon D12.8, Benign neoplasm of rectum D12.0, Benign neoplasm of cecum K57.30, Diverticulosis of large intestine without perforation or abscess without bleeding --- Technical --- Z12.11, Encounter for screening for malignant neoplasm of colon D12.8, Benign neoplasm of rectum D12.0, Benign neoplasm of cecum K57.30, Diverticulosis of large intestine without perforation or abscess without bleeding CPT copyright 2020 [employer]. All rights reserved. The codes documented in this report are preliminary and upon impregnation operator review may be revised to meet current compliance requirements. Long Goodwin MD 02/11/2023 12:02:56 PM This report has been signed electronically. Number of Addenda: 0 Note Initiated On: 02/11/2023 10:17 AM [facility] ENDOSCOPY 02/11/2023 10:1 7 AM CDT us Long Goodwin MD GI PROCEDURE ORDERABLES Edited R esult - Final Performing Organization Address City/[facility] Co de Phone Number [facility] ENDOSCOPY * HEPATITIS C ANTIBODY (09/03/2022 8:44 AM BENEFITS SALES CONSULTANT) Hepatitis C Antibody <0.1 0.0 - 0.9 s/co ratio [facility] ACCOUNT BILL Comment: Negative: < 0.8 Indeterminate: 0.8 - 0.9 Positive: > 0.9 . HCV antibody alone does not differentiate between previous resolved infection and active infection. The CDC and current clinical guidelines recommend that a positive HCV antibody result be followed up with an HCV RNA test to support the diagnosis of acute HCV infection. [facility] offers Hepatitis C Virus (HCV) RNA, Diagnosis, JANI (719203) and Hepatitis C Virus (HCV) Antibody with reflex to Quantitative Real-time PCR ([id number]). FASTING Blood BLOOD SPECIMEN / Unknown 09/03/2022 8:44 AM BENEFITS SALES CONSULTANT 09/03/2022 Narrative Resulting Agency Comment Lab Testing performed at: [facility] [address] [facility] [id number] us Thee Beasley DO LAB - CHEMISTRY ORDERABLES Final Result Performing Organization Address City/[facility] Co de Phone Number [facility] ACCOUNT BILL [address] [place] [address] from Last 3 Months or Most Recently Relevant to Health Maintenance Insurance [facility] Member Subscriber Plan / Payer (Ef fective 2024-Present) Name:Fran Kimble Relation to Subscriber:Spouse Name:PATRIA KIMBLE Date of :1970 (Home) Address: [address] [place] [address] Payer ID:[id number] (NAIC) Type:Commercial Address: [place] [phone] [facility] Advance Directives * Full Code (Latest Code Status on File) Date Activated Date Inactivated Comments 04/26/2014 9:23 PM 04/28/2014 4:11 PM Care Teams Bulk Tank Driver Relationship Specialty Start Date End Date Thee Beasley DO [address] [place] [id number] PCP - General Internal Medicine 05/13/22 Thee Beasley DO [address] [place] [phone] PCP - Attributed-[employer] [facility] 11/22/22 Himanshu Todd MD [address] [facility] [address] [place] [address] Cardiology 03/11/22 Long Goodwin MD [address] [place] [address] [address] [place] [address] Gastroenterology 06/06/23 Ja Kelsey MD [address] [facility] [address] [place], [place] [id number] Physician Neurology 06/08/24
--- OUTSIDE RECORDS SUMMARY | 2025-05-04 01:59 | XMS_ITS | Encounter Summary ---
Author Organization [facility] Health Address [address] [facility] [place] [address] Care Team Providers Care Padder Cushion Name Role Phone Susy Rios MD Primary Care Provider UnavailSusy Garcia MD Unavailable Unavailable Vernon Macias MD Primary Care Provider [phone] Susy Rios MD Unavailable Unavailable Susy Rios MD Primary Care Provider UnavailVernon Christensen MD Primary Care Provider [phone] Susy Rios MD Primary Care Provider Unavailabl e Himanshu Todd MD Unavailable [phone] Thee Beasley DO Primary Care Provider [phone] hTee Beasley DO Unavailable Long Goodwin MD Unavailable Ja Kelsey MD Unavailable [phone] Encounter Details Date Type Department Care Team (Late st Contact Info) Description 09/07/2013 [facility] Outpatient Visit [facility] [address] [place] [address] Unknown, Provider Social History Tobacco Use Types Packs/Day Years Used Date Smoking Tobacco: Never Smokeless Tobacco: Former Comments:chew for 10 years q uit at age 41 Alcohol Use Standard Drinks/Week Comments No 0 (1 standard drink = 0.6 oz pur e alcohol) maybe twice a year Sex and Gender Information Value Date Recorded Sex Assigned at Not on file 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 Gender Identity Not on file Sexual Orientation Not on file 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 Not on file Not on file documented as of this encounter Plan of Treatment Upcoming Encounters Date Type Department Care Team (Late st Contact Info) Description 05/10/2025 3:00 PM CDT Office Visit [facility] - Internal Medicine [address] [facility] [place] [address] [place] [address] Thee Beasley DO [address] [facility] [place] [phone] 07/11/2025 8:20 AM 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 Office Visit [facility] [address] [facility] [address] [place] [address] [place] [address] [place] [address] [address] [place] [address] 11/22/2025 9:30 AM CDT Office Visit [facility] [address] [facility] [address] [place] [address] Himanshu Todd MD [address] [place] [phone] documented as of this encounter Visit Diagnoses Not on filedocumented in this encounter Care Teams Padder Cushion Relationship Specialty Start Date End Date Susy Rios MD PCP - General Family Medicine 05/09/13 07/25/19 Susy Rios MD Need updated address PCP - Attributed-[employer] 01/07/17 07/24/19 Vernon Macias MD [address] [facility] [address] [place] [address] PCP - General 07/26/19 08/08/19 Susy Rios MD PCP - General Family Medicine 08/15/19 08/26/19 Vernon Macias MD [address] [place] [phone] PCP - General 08/27/19 09/03/19 Susy Rios MD PCP - General 09/04/19 05/12/22 Thee Beasley DO [address] [place] [address] PCP - General Internal Medicine 05/13/22 Thee Beasley DO [address] [place] [address] PCP - Attributed-[facility] 11/22/22 Susy Rios MD Family Medicine 08/09/19 08/14/19 Himanshu Todd MD [address] [facility] [address] [place] [phone] Cardiology 03/11/22 Long Goodwin MD [facility] [address] [place] [address] Gastroenterology 06/06/23 Ja Kelsey MD [address] [facility] [address] [place] [address] Physician Neurology 06/08/24 documented as of this encounter
--- NOTE | 2025-05-04 02:09 | ECG_ITS ---
Test Date: 2025-05-04 02:32:21 Measurements Intervals [place] Rate: 111 P: 46 WV: 194 QRS: -18 QRSD: 104 T: 51 QT: 390 QTc: 532 Interpretive Statements SINUS TACHYCARDIA WITH FREQUENT VENTRICULAR PREMATURE COMPLEXES VOLTAGE CRITERIA FOR LVH POSSIBLE ANTERIOR MYOCARDIAL INFARCTION , OF INDETERMINATE AGE BASELINE ARTIFACT- I, II, III, AVR, AVL, AVF, V1-V6 ABNORMAL ECG No previous ECG available for comparison Electronically Signed On 05-04-2025 08:52:11 CDT by Omega Dailey D.O.
--- NOTE | 2025-05-04 02:10 | ED.GENADULT ---
HPI - General Adult General Chief complaint: Anxiety <Jesus Pedersen DO - Last Filed: 05/04/25 08:15> Stated complaint: anxiety after hemp oil ingestion <Jesus Pedersen DO - Last Filed: 05/04/25 08:15> Time Seen by Provider: 05/04/25 01:49 <Jesus Pedersen DO - Last Filed: 05/04/25 08:15> Source: patient and family <Jesus Pedersen DO - Last Filed: 05/04/25 08:15> Mode of arrival: EMS <Jesus Pedersen DO - Last Filed: 05/04/25 08:15> Limitations: no limitations <Jesus Pedersen DO - Last Filed: 05/04/25 08:15> History of Present Illness HPI narrative: Patient is a 55-year-old male presents to the emergency department via EMS accompanied by complaining of difficulty breathing. 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 Patient denies any history of heart disease but does admit to family history of heart disease. Patient denies history of blood clots. Patient denies cough, fever, vomiting, nausea, diarrhea. Patient is to feeling overall spaced out mentation ceja. Patient denies any recent injuries or recent illness. Patient denies anyone else taking the will as well and notes the toxic similar to in the past about 1 year ago. Patient denies any alcohol or illicit drug use. Patient denies any focal weakness or numbness. Patient denies history of COPD using breathing treatments. <Jesus Pedersen DO - Last Filed: 05/04/25 08:15> Related Data Home medications: Home Medications ?Medication ?Instructions ?Recorded ?Confirmed ?Last Taken ?Type amlodipine 10 mg tablet 10 mg PO HS 11/14/19 11/14/19 11/13/19 21:00 History irbesartan 150 mg tablet 150 mg PO DAILY 11/14/19 11/14/19 11/13/19 08:00 History tizanidine 4 mg tablet 4 mg PO DAILY 11/14/19 11/14/19 11/13/19 08:00 History <Jesus Pedersen DO - Last Filed: 05/04/25 08:15> Allergies/adverse reactions: Allergies Allergy/AdvReac Type Severity Reaction Status Date / Time ketorolac Allergy Unknown Other Verified 05/04/25 01:06 levofloxacin Allergy Unknown Other Verified 05/04/25 01:06 NSAIDS (Non-Steroidal Allergy Unknown Other Verified 05/04/25 01:06 Anti-Inflamma amoxicillin (From Augmentin) Allergy Gastrointestinal Verified 05/04/25 01:06 Upset ciprofloxacin (From Cipro) Allergy Joint Pain Verified 05/04/25 01:06 clavulanic acid (From Allergy Gastrointestinal Verified 05/04/25 01:06 Augmentin) Upset <Jesus Pedersen DO - Last Filed: 05/04/25 08:15> Review of Systems Review of Systems: A 10 system review of systems was completed on the patient and is negative except for what is stated in the HPI. Nursing and ancillary documentation was reviewed. <Jesus Pedersen DO - Last Filed: 05/04/25 08:15> [facility] Past Medical History Medical History: Medical History (Updated 05/04/25 @ 08:15 by Jesus Pedersen DO) Duodenal perforation Hypertension Nephrolithiasis <Jesus Pedersen DO - Last Filed: 05/04/25 08:15> Family History Family History: Family History Mother Hypertension Family history of diabetes mellitus in first degree relative Father Family history of bronchitis <Jesus Pedersen DO - Last Filed: 05/04/25 08:15> Social History Social History: Social History Smoking status: Never smoker Smokeless tobacco user: chewing tobacco Second hand tobacco smoke exposure: No Alcohol intake: current Drinks per week: 2 Substance use: never Substance use type: other Gender identity (if verbalized by the patient): Male Spiritual care concerns: No Agree to blood products: Yes <Jesus Pedersen DO - Last Filed: 05/04/25 08:15> Exam Narrative: CONST: No acute distress. Well nourished. HENMT: Head is normocephalic and atraumatic. Dry mucous membranes. No posterior oropharynx erythema. EYES: No scleral icterus. Bilateral conjunctival injection. PERRL. NECK: No meningeal signs. RESP: Able to speak in full sentences. Tachypnea. CTAB. CARDIO: Tachycardic rate. Regular rhythm. 2+ DP and radial pulses bilaterally. GI: Nondistended. No tenderness to palpation. Soft. : No CVA tenderness to palpation. SKIN: No rashes or lesions noted on exposed skin. NEURO: Oriented x3. Moves all extremities. No focal neurological deficits. EXTREM/MSK/BACK: No pedal edema. PSYCH: Normal affect. <Jesus Pedersen DO - Last Filed: 05/04/25 08:15> Course Course Emergency Course: RHIANNON: 55-year-old male presenting with shortness of breath and tachycardia after using a new hemp oil for insomnia. His workup was unremarkable. Patient was signed out to me pending CT chest which did not show any acute cardiopulmonary process. Patient was re-evaluated the morning and says he is feeling better. His vital signs have normalized. White count is 18.4 but that is thought to be reactive. Patient is comfortable going home and returning if you develops any new or worsening symptoms. Patient discharged. <Dragan Haywood MD - Last Filed: 05/04/25 11:12> Vital Signs Vital signs: Vital Signs Temperature 98.6 F 05/04/25 01:01 Pulse Rate 122 H 05/04/25 01:01 Respiratory Rate 24 H 05/04/25 01:01 Blood Pressure 126/92 H 05/04/25 01:01 Pulse Oximetry 93 05/04/25 01:01 Oxygen Delivery Room Air 05/04/25 01:01 Temperature 98.6 F 05/04/25 01:01 Pulse Rate 61 05/04/25 10:51 Respiratory Rate 15 05/04/25 10:51 Blood Pressure 118/83 05/04/25 10:51 Pulse Oximetry 98 05/04/25 10:51 Oxygen Delivery Room Air 05/04/25 01:01 <eJsus Pedersen DO - Last Filed: 05/04/25 08:15> Vital Signs Temperature 98.6 F 05/04/25 01:01 Pulse Rate 122 H 05/04/25 01:01 Respiratory Rate 24 H 05/04/25 01:01 Blood Pressure 126/92 H 05/04/25 01:01 Pulse Oximetry 93 05/04/25 01:01 Oxygen Delivery Room Air 05/04/25 01:01 Temperature 98.6 F 05/04/25 01:01 Pulse Rate 61 05/04/25 10:51 Respiratory Rate 15 05/04/25 10:51 Blood Pressure 118/83 05/04/25 10:51 Pulse Oximetry 98 05/04/25 10:51 Oxygen Delivery Room Air 05/04/25 01:01 <Dragan Haywood MD - Last Filed: 05/04/25 11:12> Medical Decision Making MDM Narrative Medical decision making narrative: Patient presents with the above complaint. Initial vitals are remarkable for tachycardia, tachypnea. Physical examination as noted above. Differential diagnosis includes was not limited to: Drug abuse, pneumonia, ACS, pulmonary embolism, dehydration, metabolic derangement, reactive airway disease exacerbation. Plan discussed: Laboratory analysis, EKG, chest x-ray, continues cardiac monitoring, continuous pulse oximetry, breathing treatment, IV fluids, DuoNeb breathing treatment. EKG performed at 2:32 a.m. reveals a rate of 111, rhythm is sinus tachycardia, axis is left axis deviation, occasional PVCs, moderate voltage criteria for LVH, no ST elevations or depressions, no T-wave abnormalities, no old EKG on file for comparison. COVID and influenza and RSV testing are negative. UDS is positive for cannabinoids. TSH is 0.715. Lipase 51. BNP is less than 20. Troponin is less than 0.012. Magnesium is 1.6. Lactic acid went from 2.4 down to 2.0. CMP reveals a glucose of 170, BUN of 23, creatinine 1.44, sodium 133. No significant change from patient's baseline creatinine on file. D-dimer is less than 0.27. Coags are within normal limits. CBC reveals a white blood cell count of 18.4. Patient signed out to oncoming physician pending CT. <Jesus Pedersen DO - Last Filed: 05/04/25 08:15> Vital Signs Vital Signs: Vital Signs Temperature 98.6 F 05/04/25 01:01 Pulse Rate 122 H 05/04/25 01:01 Respiratory Rate 24 H 05/04/25 01:01 Blood Pressure 126/92 H 05/04/25 01:01 Pulse Oximetry 93 05/04/25 01:01 Oxygen Delivery Room Air 05/04/25 01:01 Temperature 98.6 F 05/04/25 01:01 Pulse Rate 61 05/04/25 10:51 Respiratory Rate 15 05/04/25 10:51 Blood Pressure 118/83 05/04/25 10:51 Pulse Oximetry 98 05/04/25 10:51 Oxygen Delivery Room Air 05/04/25 01:01 <Jesus Pedersen DO - Last Filed: 05/04/25 08:15> Vital Signs Temperature 98.6 F 05/04/25 01:01 Pulse Rate 122 H 05/04/25 01:01 Respiratory Rate 24 H 05/04/25 01:01 Blood Pressure 126/92 H 05/04/25 01:01 Pulse Oximetry 93 05/04/25 01:01 Oxygen Delivery Room Air 05/04/25 01:01 Temperature 98.6 F 05/04/25 01:01 Pulse Rate 61 05/04/25 10:51 Respiratory Rate 15 05/04/25 10:51 Blood Pressure 118/83 05/04/25 10:51 Pulse Oximetry 98 05/04/25 10:51 Oxygen Delivery Room Air 05/04/25 01:01 <Dragan Haywood MD - Last Filed: 05/04/25 11:12> Lab Data Result diagrams: 05/04/25 02:38 05/04/25 02:38 <Jesus Pedersen DO - Last Filed: 05/04/25 08:15> Labs: Lab Results 05/04/25 05/04/25 05/04/25 Range/Units 02:38 02:55 05:22 WBC 18.4 H (4.5-10.0) K/mm3 RBC 4.79 (4.6-6.20) M/mm3 Hgb 14.7 D (14.0-18.0) g/dL Hct 41.4 L (42.0-52.0) % MCV 86.4 (80-100) fl MCH 30.7 (26-34) pg MCHC 35.5 (32-36) g/dl RDW 12.8 (11.5-14.5) % Plt Count 360 (150-375) k/mm3 MPV 10.0 (7.4-10.4) fl Immature Gran % (Auto) 0.6 H (0-0.5) % Neut % (Auto) 86.1 H (45.5-73.1) % Lymph % (Auto) 7.6 L (18.3-44.2) % [place] % (Auto) 5.4 (2.6-8.5) % Eos % (Auto) 0.1 (0-4.4) % Baso % (Auto) 0.2 (0.2-1.2) % Lymph # (Auto) 1.40 (0.9-3.2) K/mm3 [place] # (Auto) 1.0 H (0.1-0.6) K/mm3 Eos # (Auto) 0.0 (0-0.3) K/mm3 Baso # (Auto) 0.0 (0.0-0.1) K/mm3 Abs Immat Gran (auto) 0.11 H (0.00-0.031) K/mm3 Absolute Neuts (auto) 15.9 H (1.3-6.7) K/mm3 Absolute Nucleated RBC 0.000 (0.0-0.012) K/mm3 Nucleated RBC % 0.0 (0.0-0.2) % PT 13.1 (11.1-14.7) Seconds INR 1.0 APTT 27.4 (22.3-36.8) Seconds D-Dimer < 0.27 (<0.48) ug/mL Sodium 133 L (137-145) mmol/L Potassium 3.9 (3.4-5.0) mmol/L Chloride 99 (98-107) mmol/L Carbon Dioxide 24 (22-30) mmol/L Anion Gap 10 (4-12) mmol/L BUN 23 H (9-20) mg/dL Creatinine 1.44 H (0.7-1.3) mg/dL Estim Creat Clear Calc 58 ml/min Estimated GFR 51 L (59 - ) Glucose 170 H (65-110) mg/dL Lactic Acid 2.4 H 2.0 (0.7-2.0) mmol/L Calcium 9.1 (8.4-10.2) mg/dL Magnesium 1.6 (1.6-2.3) mg/dL Total Bilirubin 0.4 (0.2-1.3) mg/dL AST 25 (17-59) U/L ALT 27 (6-50) U/L Alkaline Phosphatase 76 (38-126) U/L Troponin I < 0.012 < 0.012 (0.000-0.034) ng/mL NT-Pro-B Natriuret Pep < 20 (19.9-100) pg/mL Total Protein 7.3 (6.3-8.2) g/dL Albumin 4.1 (3.5-5.1) g/dL Lipase 53 (23-300) U/L TSH (Reflex) 0.715 (0.465-4.68) uIU/mL Urine Opiates Screen Negative (Negative) Urine Methadone Screen Negative (Negative) Ur Barbiturates Screen Negative (Negative) Ur Phencyclidine Scrn Negative (Negative) Ur Amphetamine Screen Negative (Negative) U Benzodiazepines Scrn Negative (Negative) Urine Cocaine Screen Negative (Negative) U Cannabinoids Screen Positive A (Negative) Influenza A (RT-PCR) Negative (Negative) Influenza B (RT-PCR) Negative (Negative) RSV (RT-PCR) Negative (Negative) SARS-CoV-2 RNA (RT-PCR) Negative (Negative) 05/04/25 Range/Units 08:03 WBC (4.5-10.0) K/mm3 RBC (4.6-6.20) M/mm3 Hgb (14.0-18.0) g/dL Hct (42.0-52.0) % MCV (80-100) fl MCH (26-34) pg MCHC (32-36) g/dl RDW (11.5-14.5) % Plt Count (150-375) k/mm3 MPV (7.4-10.4) fl Immature Gran % (Auto) (0-0.5) % Neut % (Auto) (45.5-73.1) % Lymph % (Auto) (18.3-44.2) % [place] % (Auto) (2.6-8.5) % Eos % (Auto) (0-4.4) % Baso % (Auto) (0.2-1.2) % Lymph # (Auto) (0.9-3.2) K/mm3 [place] # (Auto) (0.1-0.6) K/mm3 Eos # (Auto) (0-0.3) K/mm3 Baso # (Auto) (0.0-0.1) K/mm3 Abs Immat Gran (auto) (0.00-0.031) K/mm3 Absolute Neuts (auto) (1.3-6.7) K/mm3 Absolute Nucleated RBC (0.0-0.012) K/mm3 Nucleated RBC % (0.0-0.2) % PT (11.1-14.7) Seconds INR APTT (22.3-36.8) Seconds D-Dimer (<0.48) ug/mL Sodium (137-145) mmol/L Potassium (3.4-5.0) mmol/L Chloride (98-107) mmol/L Carbon Dioxide (22-30) mmol/L Anion Gap (4-12) mmol/L BUN (9-20) mg/dL Creatinine (0.7-1.3) mg/dL Estim Creat Clear Calc ml/min Estimated GFR (59 - ) Glucose (65-110) mg/dL Lactic Acid (0.7-2.0) mmol/L Calcium (8.4-10.2) mg/dL Magnesium (1.6-2.3) mg/dL Total Bilirubin (0.2-1.3) mg/dL AST (17-59) U/L ALT (6-50) U/L Alkaline Phosphatase (38-126) U/L Troponin I < 0.012 (0.000-0.034) ng/mL NT-Pro-B Natriuret Pep (19.9-100) pg/mL Total Protein (6.3-8.2) g/dL Albumin (3.5-5.1) g/dL Lipase (23-300) U/L TSH (Reflex) (0.465-4.68) uIU/mL Urine Opiates Screen (Negative) Urine Methadone Screen (Negative) Ur Barbiturates Screen (Negative) Ur Phencyclidine Scrn (Negative) Ur Amphetamine Screen (Negative) U Benzodiazepines Scrn (Negative) Urine Cocaine Screen (Negative) U Cannabinoids Screen (Negative) Influenza A (RT-PCR) (Negative) Influenza B (RT-PCR) (Negative) RSV (RT-PCR) (Negative) SARS-CoV-2 RNA (RT-PCR) (Negative) <Jesus Pedersen, DO - Last Filed: 05/04/25 08:15> Lab Results 05/04/25 05/04/25 05/04/25 Range/Units 02:38 02:55 05:22 WBC 18.4 H (4.5-10.0) K/mm3 RBC 4.79 (4.6-6.20) M/mm3 Hgb 14.7 D (14.0-18.0) g/dL Hct 41.4 L (42.0-52.0) % MCV 86.4 (80-100) fl MCH 30.7 (26-34) pg MCHC 35.5 (32-36) g/dl RDW 12.8 (11.5-14.5) % Plt Count 360 (150-375) k/mm3 MPV 10.0 (7.4-10.4) fl Immature Gran % (Auto) 0.6 H (0-0.5) % Neut % (Auto) 86.1 H (45.5-73.1) % Lymph % (Auto) 7.6 L (18.3-44.2) % [place] % (Auto) 5.4 (2.6-8.5) % Eos % (Auto) 0.1 (0-4.4) % Baso % (Auto) 0.2 (0.2-1.2) % Lymph # (Auto) 1.40 (0.9-3.2) K/mm3 [place] # (Auto) 1.0 H (0.1-0.6) K/mm3 Eos # (Auto) 0.0 (0-0.3) K/mm3 Baso # (Auto) 0.0 (0.0-0.1) K/mm3 Abs Immat Gran (auto) 0.11 H (0.00-0.031) K/mm3 Absolute Neuts (auto) 15.9 H (1.3-6.7) K/mm3 Absolute Nucleated RBC 0.000 (0.0-0.012) K/mm3 Nucleated RBC % 0.0 (0.0-0.2) % PT 13.1 (11.1-14.7) Seconds INR 1.0 APTT 27.4 (22.3-36.8) Seconds D-Dimer < 0.27 (<0.48) ug/mL Sodium 133 L (137-145) mmol/L Potassium 3.9 (3.4-5.0) mmol/L Chloride 99 (98-107) mmol/L Carbon Dioxide 24 (22-30) mmol/L Anion Gap 10 (4-12) mmol/L BUN 23 H (9-20) mg/dL Creatinine 1.44 H (0.7-1.3) mg/dL Estim Creat Clear Calc 58 ml/min Estimated GFR 51 L (59 - ) Glucose 170 H (65-110) mg/dL Lactic Acid 2.4 H 2.0 (0.7-2.0) mmol/L Calcium 9.1 (8.4-10.2) mg/dL Magnesium 1.6 (1.6-2.3) mg/dL Total Bilirubin 0.4 (0.2-1.3) mg/dL AST 25 (17-59) U/L ALT 27 (6-50) U/L Alkaline Phosphatase 76 (38-126) U/L Troponin I < 0.012 < 0.012 (0.000-0.034) ng/mL NT-Pro-B Natriuret Pep < 20 (19.9-100) pg/mL Total Protein 7.3 (6.3-8.2) g/dL Albumin 4.1 (3.5-5.1) g/dL Lipase 53 (23-300) U/L TSH (Reflex) 0.715 (0.465-4.68) uIU/mL Urine Opiates Screen Negative (Negative) Urine Methadone Screen Negative (Negative) Ur Barbiturates Screen Negative (Negative) Ur Phencyclidine Scrn Negative (Negative) Ur Amphetamine Screen Negative (Negative) U Benzodiazepines Scrn Negative (Negative) Urine Cocaine Screen Negative (Negative) U Cannabinoids Screen Positive A (Negative) Influenza A (RT-PCR) Negative (Negative) Influenza B (RT-PCR) Negative (Negative) RSV (RT-PCR) Negative (Negative) SARS-CoV-2 RNA (RT-PCR) Negative (Negative) 05/04/25 Range/Units 08:03 WBC (4.5-10.0) K/mm3 RBC (4.6-6.20) M/mm3 Hgb (14.0-18.0) g/dL Hct (42.0-52.0) % MCV (80-100) fl MCH (26-34) pg MCHC (32-36) g/dl RDW (11.5-14.5) % Plt Count (150-375) k/mm3 MPV (7.4-10.4) fl Immature Gran % (Auto) (0-0.5) % Neut % (Auto) (45.5-73.1) % Lymph % (Auto) (18.3-44.2) % [place] % (Auto) (2.6-8.5) % Eos % (Auto) (0-4.4) % Baso % (Auto) (0.2-1.2) % Lymph # (Auto) (0.9-3.2) K/mm3 [place] # (Auto) (0.1-0.6) K/mm3 Eos # (Auto) (0-0.3) K/mm3 Baso # (Auto) (0.0-0.1) K/mm3 Abs Immat Gran (auto) (0.00-0.031) K/mm3 Absolute Neuts (auto) (1.3-6.7) K/mm3 Absolute Nucleated RBC (0.0-0.012) K/mm3 Nucleated RBC % (0.0-0.2) % PT (11.1-14.7) Seconds INR APTT (22.3-36.8) Seconds D-Dimer (<0.48) ug/mL Sodium (137-145) mmol/L Potassium (3.4-5.0) mmol/L Chloride (98-107) mmol/L Carbon Dioxide (22-30) mmol/L Anion Gap (4-12) mmol/L BUN (9-20) mg/dL Creatinine (0.7-1.3) mg/dL Estim Creat Clear Calc ml/min Estimated GFR (59 - ) Glucose (65-110) mg/dL Lactic Acid (0.7-2.0) mmol/L Calcium (8.4-10.2) mg/dL Magnesium (1.6-2.3) mg/dL Total Bilirubin (0.2-1.3) mg/dL AST (17-59) U/L ALT (6-50) U/L Alkaline Phosphatase (38-126) U/L Troponin I < 0.012 (0.000-0.034) ng/mL NT-Pro-B Natriuret Pep (19.9-100) pg/mL Total Protein (6.3-8.2) g/dL Albumin (3.5-5.1) g/dL Lipase (23-300) U/L TSH (Reflex) (0.465-4.68) uIU/mL Urine Opiates Screen (Negative) Urine Methadone Screen (Negative) Ur Barbiturates Screen (Negative) Ur Phencyclidine Scrn (Negative) Ur Amphetamine Screen (Negative) U Benzodiazepines Scrn (Negative) Urine Cocaine Screen (Negative) U Cannabinoids Screen (Negative) Influenza A (RT-PCR) (Negative) Influenza B (RT-PCR) (Negative) RSV (RT-PCR) (Negative) SARS-CoV-2 RNA (RT-PCR) (Negative) <Dragan Haywood MD - Last Filed: 05/04/25 11:12> Discharge Plan Discharge Clinical Impression: Marijuana intoxication, Dyspnea, Chest tightness <DO Nayeli Nolan Last Filed: 05/04/25 08:15> Patient Disposition: Home <Jesus Pedersen DO - Last Filed: 05/04/25 08:15> Condition: Stable <Jesus Pedersen DO - Last Filed: 05/04/25 08:15> Instructions: Antibiotic Form, Chest Pain (ED), Dyspnea (ED) <DO Nayeli Nolan Last Filed: 05/04/25 08:15> Additional Instructions: Follow-up with your primary care physician in the next few days for reassessment, rest and stay well hydrated, avoid any illicit drug use, return immediately to the emergency department for any new or concerning symptoms especially any emergent concerns for life, limb, eyesight <Jesus Pedersen DO - Last Filed: 05/04/25 08:15> Patient Language: Mauritanian <DO Nayeli Nolan Last Filed: 05/04/25 08:15> Prescriptions: No Action amlodipine 10 mg tablet 10 mg PO HS tizanidine 4 mg tablet 4 mg PO DAILY irbesartan 150 mg tablet 150 mg PO DAILY tamsulosin [Flomax] 0.4 mg capsule 0.4 mg PO DAILY Qty: 30 0RF acetaminophen 500 mg capsule 500 mg PO Q6H PRN (Reason: fever or pain) Qty: 30 0RF oxycodone [Roxicodone] 5 mg tablet 5 mg PO Q6H PRN (Reason: pain) Qty: 20 0RF docusate sodium [Dulcolax Stool Softener (dss)] 100 mg capsule 100 mg PO DAILY PRN (Reason: constipation ) 10 Days Qty: 20 0RF <Jesus Pedersen DO - Last Filed: 05/04/25 08:15> Follow-up/Referrals: Martin Wei MD [Physician, Family Practice] - 2 Days PHYSICIAN NOT ON STAFF,NONSTAFF [Primary Care Provider] <Jesus Pedersen DO - Last Filed: 05/04/25 08:15>
[2025-05-04] MEDS: IPRATROPIUM 0.5 MG/ALBUTEROL SULFATE 2.5 MG (BASE) AMPUL.NEB 3 ML INHALATION (02:15)
[2025-05-04] MEDS: SODIUM CHLORIDE 0.9% IV 1,000 ML 999 ML IV CONT (02:30)
[2025-05-04 02:45] LABS: Hematocrit 41.4 % (42.0-52.0); Hemoglobin 14.7 g/dL (14.0-18.0); Immature Granulocyte Percent A 0.6 % (0-0.5); Lymphocytes Absolute Auto 1.40 K/mm3 (0.9-3.2); Mean Corpuscular HGB Conc 35.5 g/dl (32-36); Mean Corpuscular Hemoglobin 30.7 pg (26-34); Mean Corpuscular Volume 86.4 fl (80-100); Nucleated Red Blood Cells Absolute Auto 0.000 K/mm3 (0.0-0.012); Nucleated Red Blood Cells Perc 0.0 % (0.0-0.2); Platelet Count Result 360 k/mm3 (150-375); Red Blood Count 4.79 M/mm3 (4.6-6.20); White Blood Count 18.4 K/mm3 (4.5-10.0)
[2025-05-04 03:00] LABS: Alanine Aminotransferase 27 U/L (6-50); Albumin Level 4.1 g/dL (3.5-5.1); Alkaline Phosphatase 76 U/L (38-126); Anion Gap 10 mmol/L (4-12); Aspartate Amino Transferase 25 U/L (17-59); Bilirubin,Total 0.4 mg/dL (0.2-1.3); Blood Urea Nitrogen 23 mg/dL (9-20); Calcium 9.1 mg/dL (8.4-10.2); Carbon Dioxide 24 mmol/L (22-30); Chloride 99 mmol/L (98-107); Estimated CRCL calculation 58 ml/min; Estimated Glomerular Filt Rate 51; Glucose 170 mg/dL (65-110); Lipase 53 U/L (23-300); Magnesium 1.6 mg/dL (1.6-2.3); Potassium 3.9 mmol/L (3.4-5.0); Sodium 133 mmol/L (137-145); Total Protein 7.3 g/dL (6.3-8.2)
[2025-05-04 03:07] LABS: NT Pro B Type Natriuretic Pept < 20 pg/mL (19.9-100); Troponin I < 0.012 ng/mL (0.000-0.034)
[2025-05-04 03:19] LABS: Influenza A QL RT-PCR Negative (Negative); Influenza B QL RT-PCR Negative (Negative); RSV RNA, RT-PCR Negative (Negative); SARS-CoV-2 RNA PCR Negative (Negative)
[2025-05-04 03:23] LABS: INR 1.0; Prothrombin Time 13.1 Seconds (11.1-14.7)
[2025-05-04 03:25] LABS: Partial Thromboplastin Time 27.4 Seconds (22.3-36.8)
[2025-05-04 03:27] LABS: Thyroid Stimulating Hormone Reflex 0.715 uIU/mL (0.465-4.68)
[2025-05-04 03:31] LABS: Cannabinoid Screen Urine Positive (Negative)
[2025-05-04 06:06] LABS: Troponin I < 0.012 ng/mL (0.000-0.034)
--- NOTE | 2025-05-04 07:53 | ECG_ITS ---
Test Date: 2025-05-04 08:01:33 Measurements Intervals [place] Rate: 70 P: 23 VA: 182 QRS: -14 QRSD: 110 T: 7 QT: 396 QTc: 427 Interpretive Statements SINUS RHYTHM DELAYED PRECORDIAL R/S TRANSITION VOLTAGE CRITERIA FOR LVH BORDERLINE ECG Compared to ECG 05/04/2025 02:32:21 HEART RATE HAS DECREASED Electronically Signed On 05-04-2025 08:32:02 CDT by Omega Dailey D.O.
[2025-05-04 08:38] LABS: Troponin I < 0.012 ng/mL (0.000-0.034)
== END 2025-05-04 11:29 | disposition home or self-care (01) ==
PROVIDERS: Emergency Provider Student in an Organized Health Care Education/Training Program
DX: R07.89 Other chest pain (principal); R06.00 Dyspnea, unspecified; F12.929 Cannabis use, unspecified with intoxication, unspecified; Z20.822 Contact with and (suspected) exposure to COVID-19; I10 Essential (primary) hypertension; F17.220 Nicotine dependence, chewing tobacco, uncomplicated; Z87.442 Personal history of urinary calculi; Z79.899 Other long term (current) drug therapy; R00.0 Tachycardia, unspecified; I49.3 Ventricular premature depolarization; R94.31 Abnormal electrocardiogram [ECG] [EKG]
CPT/HCPCS: 36415; 71045; 71250; 80053; 80307; 83605; 83690; 83735; 83880; 84443; 84484; 85025; 85380; 85610; 85730; 87637; 93005; 94640; 96360; 99284; J7030